=== PATIENT | female | born 1975 | race African-American/Black ===

== ENCOUNTER 2016-08-19 04:57 | Emergency (ER) | payer OTHER ==
--- NOTE | 2016-08-19 05:34 | ED NURSING NOTES ---
Clinical Report - Nurses [facility] [address] [place] [address] 08/19/2016 4:57 Patient: CHAUNCEY BATES TRIAGE Triage time 0504 AM. Chief Complaint: "FLU", FEVER, COUGH and BODY ACHES. Alert. No acute distress. --05:08 Amado Robles R.N. 05:04 08/19/16. BP: 156/111. HR: 81. RR: 18. O2 saturation: 97%. Temp: 98.5 F (oral). Pain level now: 03/14. --05:08 Amado Robles R.N. Weight: 113.3 kg stated. Height/Length: 66 inches Per Patient. BMI: 40.3. --05:06 Amado Robles R.N. Medications ALPRAZolam Oral. Evotas. Latuda Oral. Lisinopril Oral 10 mg, daily. Nightmare medication. OLANZapine Oral. --05:05 Amado Robles R.N. Truvada Oral. --05:06 Amado Robles R.N. Allergies Sulfa Antibiotics. --05:05 Amado Robles R.N. History Arrived by private vehicle. Historian: patient. Accompanied by family. Onset. (about 2 days). She has had contact with a sick individual. She has had chills, fatigue, sinus pain and a headache. PAST MEDICAL HX: Immunizations: up-to-date. Last normal menstrual period- August 18. Denies current . SOCIAL HX: Light tobacco smoker (cigarette)- less than 1/2 a pack per day. Alcohol use. (no). History of drug use. (no). FALL RISK ASSESSMENT: Fall risk assessment completed. No fall risk identified. NUTRITIONAL RISK ASSESSMENT: The nutritional risk assessment revealed no deficiencies. FUNCTIONAL ASSESSMENT: Functional assessment: no impairments noted. LEARNING NEEDS ASSESSMENT: The learning needs assessment revealed no barriers. SKIN INTEGRITY ASSESSMENT: Skin integrity risk assessment completed. No skin integrity risk identified. --05:08 Amado Robles R.N. Treatment TELEPHONE COIN BOX COLLECTOR: None. --05:08 Amado Robles R.N. PROBLEMS: UTI - Urinary Tract Infection. Dehydration. Costochondritis. Hypertension. Gastroenteritis. Diarrhea. Vomiting. Abdominal Pain. Mental health problem. HIV Illness. --05:06 Amado Robles R.N. ADDITIONAL SURGERIES: Cervical. . --05:06 Amado Robles R.N. PHYSICAL ASSESSMENT Ambulatory to room. GENERAL / NEURO / PSYCH: Alert. Oriented X 4. Appears in no acute distress. HEENT: Pupils equal, round and reactive to light. Mucous membranes are pink. RESPIRATORY: Cough productive of moderate amounts of green sputum. CVS: Normal sinus rhythm noted. Capillary refill less than 2 seconds. Pulses within normal limits. GI / : The patient has diarrhea. Abdomen soft. SKIN: Skin intact. Skin is warm and dry. Normal skin turgor. --05:08 Amado Robles R.N. NURSING PROGRESS NOTES Call light placed in reach. Side rails up x 2. Bed placed in lowest position. Brakes of bed on. --05:08 Amado Robles R.N. DISPOSITION / DISCHARGE Condition at departure: unchanged. The goals identified in the patient's plan of care were met. No learning barriers present. Reviewed medication(s) side effects, precautions, dosing and course information. Prescription(s) given to the patient. Patient verbalized understanding. Written instructions provided in Kiswahili. The patient was discharged home and unaccompanied at time of discharge. She left the Emergency Department ambulatory and via private vehicle. Occupational Therapist Rehab Manager driving. FALL RISK ASSESSMENT: Fall risk assessment completed. No fall risk identified. --05:43 Amado Robles R.N. Departure time: 0544 AM. ( Patient upset about discharge. States that she was not adequately evaluated in the ED. States that she is going to [facility].). --05:44 Amado Robles R.N. Locked/Released at 08/19/2016 5:44 by Amado Robles R.N.
--- NOTE | 2016-08-19 05:34 | ED CLINICAL REPORT ---
Clinical Report - Physicians/Mid Levels [facility] [address] [place] [address] 08/19/2016 4:57 Patient: CHAUNCEY BATES Time Seen: 05:03; initial patient contact. Arrived- By private vehicle. Historian- patient. HISTORY OF PRESENT ILLNESS Chief Complaint: COUGH. This started about 2 days ago and is still present. It was gradual in onset. The illness is described as mild. The patient has had a cough, a sore throat, nasal congestion, sinus pressure and sinus drainage. She has had a nasal discharge. No sputum production, difficulty breathing, chest discomfort or pain or fever. No muscle aches, chills or ear pain. Additional history - The patient has had contact with a sick individual. Similar symptoms previously: Several times. Recent medical care: Not recently seen/assessed. REVIEW OF SYSTEMS The patient has had a headache. No nausea, vomiting, diarrhea or enlarged lymph nodes. All systems otherwise negative, except as recorded above. PAST HISTORY UTI - Urinary Tract Infection. Dehydration. Costochondritis. Hypertension. Gastroenteritis. Diarrhea. Vomiting. Abdominal Pain. Mental health problem. HIV Illness. ADDITIONAL SURGERIES: Cervical. . SOCIAL HISTORY Current every day smoker. No alcohol use or drug use. ADDITIONAL NOTES The nursing notes have been reviewed with agreement regarding the chief complaint, PMH and patient medications and allergies. PHYSICAL EXAM Vital Signs: 08/19/2016 05:04 BP: 156/111. HR: 81. RR: 18. O2 saturation: 97%. Temp: 98.5 F. Pain level now: 910. Have been reviewed. Hypertensive. Heart rate normal. Respiratory rate normal. Temperature normal. Oxygen saturation normal. Appearance: Alert. No acute distress. Head: Tenderness present to percussion/palpation of the sinuses. Eyes: Eyes normal inspection. ENT: Mild pharyngeal erythema with right tonsillar swelling and left tonsillar swelling. Neck: No lymphadenopathy. CVS: Normal heart rate and rhythm. Heart sounds normal. Respiratory: No respiratory distress. Breath sounds normal. Skin: No rash. Neuro: Oriented X 3. PROGRESS AND PROCEDURES Disposition: Discharged home in good condition. Condition: good. CLINICAL IMPRESSION Acute viral rhinitis and sinusitis. INSTRUCTIONS Do not work today, tomorrow. Your Current Medications: CONTINUE TAKING THE FOLLOWING MEDICATIONS: ALPRAZolam Oral. Evotas*. Latuda Oral. Lisinopril Oral : 10 mg daily. Nightmare medication*. OLANZapine Oral. Truvada Oral. Prescription Medications: Flonase nasal spray: 2 sprays to each nostril daily. Dispense one (1) unit. No refills. Substitution is permissible Follow-up: Follow up with your doctor in about two days. Call for an appointment. Blood pressure screening was not performed during this visit because the patient has an active diagnosis of hypertension. The patient should follow up with a primary care provider for blood pressure management. (Electronically signed by Chon Barrientos Dr. 08/19/2016 5:36)
--- NOTE | 2016-08-19 05:34 | ED NURSING NOTES ---
Clinical Report - Nurses [facility] [address] [place] [address] 08/19/2016 4:57 Patient: CHAUNCEY BATES TRIAGE Triage time 0504 AM. Chief Complaint: "FLU", FEVER, COUGH and BODY ACHES. Alert. No acute distress. --05:08 Amado Robles R.N. 05:04 08/19/16. BP: 156/111. HR: 81. RR: 18. O2 saturation: 97%. Temp: 98.5 F (oral). Pain level now: 03/14. --05:08 Amado Robles R.N. Weight: 113.3 kg stated. Height/Length: 66 inches Per Patient. BMI: 40.3. --05:06 Amado Robles R.N. Medications ALPRAZolam Oral. Evotas. Latuda Oral. Lisinopril Oral 10 mg, daily. Nightmare medication. OLANZapine Oral. --05:05 Amado Robles R.N. Truvada Oral. --05:06 Amado Robles R.N. Allergies Sulfa Antibiotics. --05:05 Amado Robles R.N. History Arrived by private vehicle. Historian: patient. Accompanied by family. Onset. (about 2 days). She has had contact with a sick individual. She has had chills, fatigue, sinus pain and a headache. PAST MEDICAL HX: Immunizations: up-to-date. Last normal menstrual period- August 18. Denies current . SOCIAL HX: Light tobacco smoker (cigarette)- less than 1/2 a pack per day. Alcohol use. (no). History of drug use. (no). FALL RISK ASSESSMENT: Fall risk assessment completed. No fall risk identified. NUTRITIONAL RISK ASSESSMENT: The nutritional risk assessment revealed no deficiencies. FUNCTIONAL ASSESSMENT: Functional assessment: no impairments noted. LEARNING NEEDS ASSESSMENT: The learning needs assessment revealed no barriers. SKIN INTEGRITY ASSESSMENT: Skin integrity risk assessment completed. No skin integrity risk identified. --05:08 Amado Robles R.N. Treatment MECHANIC MARINE ENGINE: None. --05:08 Amado Robles R.N. PROBLEMS: UTI - Urinary Tract Infection. Dehydration. Costochondritis. Hypertension. Gastroenteritis. Diarrhea. Vomiting. Abdominal Pain. Mental health problem. HIV Illness. --05:06 Amado Robles R.N. ADDITIONAL SURGERIES: Cervical. . --05:06 Amado Robles R.N. PHYSICAL ASSESSMENT Ambulatory to room. GENERAL / NEURO / PSYCH: Alert. Oriented X 4. Appears in no acute distress. HEENT: Pupils equal, round and reactive to light. Mucous membranes are pink. RESPIRATORY: Cough productive of moderate amounts of green sputum. CVS: Normal sinus rhythm noted. Capillary refill less than 2 seconds. Pulses within normal limits. GI / : The patient has diarrhea. Abdomen soft. SKIN: Skin intact. Skin is warm and dry. Normal skin turgor. --05:08 Amado Robles R.N. NURSING PROGRESS NOTES Call light placed in reach. Side rails up x 2. Bed placed in lowest position. Brakes of bed on. --05:08 Amado Robles R.N. DISPOSITION / DISCHARGE Condition at departure: unchanged. The goals identified in the patient's plan of care were met. No learning barriers present. Reviewed medication(s) side effects, precautions, dosing and course information. Prescription(s) given to the patient. Patient verbalized understanding. Written instructions provided in Maori. The patient was discharged home and unaccompanied at time of discharge. She left the Emergency Department ambulatory and via private vehicle. Ink Jet Operator driving. FALL RISK ASSESSMENT: Fall risk assessment completed. No fall risk identified. --05:43 Amado Robles R.N. Departure time: 0544 AM. ( Patient upset about discharge. States that she was not adequately evaluated in the ED. States that she is going to [place] [facility].). --05:44 Amado Robles R.N. Locked/Released at 08/19/2016 5:44 by Amado Robles R.N.
--- NOTE | 2016-08-19 05:34 | ED CLINICAL REPORT ---
Clinical Report - Physicians/Mid Levels [facility] [address] [place] [address] 08/19/2016 4:57 Patient: CHAUNCEY BATES Time Seen: 05:03; initial patient contact. Arrived- By private vehicle. Historian- patient. HISTORY OF PRESENT ILLNESS Chief Complaint: COUGH. This started about 2 days ago and is still present. It was gradual in onset. The illness is described as mild. The patient has had a cough, a sore throat, nasal congestion, sinus pressure and sinus drainage. She has had a nasal discharge. No sputum production, difficulty breathing, chest discomfort or pain or fever. No muscle aches, chills or ear pain. Additional history - The patient has had contact with a sick individual. Similar symptoms previously: Several times. Recent medical care: Not recently seen/assessed. REVIEW OF SYSTEMS The patient has had a headache. No nausea, vomiting, diarrhea or enlarged lymph nodes. All systems otherwise negative, except as recorded above. PAST HISTORY UTI - Urinary Tract Infection. Dehydration. Costochondritis. Hypertension. Gastroenteritis. Diarrhea. Vomiting. Abdominal Pain. Mental health problem. HIV Illness. ADDITIONAL SURGERIES: Cervical. . SOCIAL HISTORY Current every day smoker. No alcohol use or drug use. ADDITIONAL NOTES The nursing notes have been reviewed with agreement regarding the chief complaint, PMH and patient medications and allergies. PHYSICAL EXAM Vital Signs: 08/19/2016 05:04 BP: 156/111. HR: 81. RR: 18. O2 saturation: 97%. Temp: 98.5 F. Pain level now: 910. Have been reviewed. Hypertensive. Heart rate normal. Respiratory rate normal. Temperature normal. Oxygen saturation normal. Appearance: Alert. No acute distress. Head: Tenderness present to percussion/palpation of the sinuses. Eyes: Eyes normal inspection. ENT: Mild pharyngeal erythema with right tonsillar swelling and left tonsillar swelling. Neck: No lymphadenopathy. CVS: Normal heart rate and rhythm. Heart sounds normal. Respiratory: No respiratory distress. Breath sounds normal. Skin: No rash. Neuro: Oriented X 3. PROGRESS AND PROCEDURES Disposition: Discharged home in good condition. Condition: good. CLINICAL IMPRESSION Acute viral rhinitis and sinusitis. INSTRUCTIONS Do not work today, tomorrow. Your Current Medications: CONTINUE TAKING THE FOLLOWING MEDICATIONS: ALPRAZolam Oral. Evotas*. Latuda Oral. Lisinopril Oral : 10 mg daily. Nightmare medication*. OLANZapine Oral. Truvada Oral. Prescription Medications: Flonase nasal spray: 2 sprays to each nostril daily. Dispense one (1) unit. No refills. Substitution is permissible Follow-up: Follow up with your doctor in about two days. Call for an appointment. Blood pressure screening was not performed during this visit because the patient has an active diagnosis of hypertension. The patient should follow up with a primary care provider for blood pressure management. (Electronically signed by Chon Barrientos Dr. 08/19/2016 5:36)
--- NOTE | 2016-08-19 05:45 | ED MAR SUMMARY ---
..... Medication Administration Record [facility] [address] [place], [place] [id number] Patient: CHAUNCEY BATES Visit ID: [id number] 41y, F Weight: 113.3 kg Height/Length: 66 in BMI: 40.3 ALLERGIES: Sulfa Antibiotics
--- NOTE | 2016-08-19 05:45 | ED MED RECONCILIATION SUMMARY ---
Patient: CHAUNCEY BATES Medication Reconciliation Report [facility] VisitID: [id number] [address] [place] [address] 41y, F Registration Date/Time: 08/19/2016 Weight: 113.3 kg Height/Length: 66 in. BMI: 40.3 ALLERGIES: Sulfa Antibiotics The patient's Home Medications are listed below: CONTINUE TAKING THE FOLLOWING MEDICATIONS: ALPRAZolam Oral Evotas Latuda Oral Lisinopril Oral 10 mg, daily Nightmare medication OLANZapine Oral Truvada Oral The source(s) of the original Home Medication information: Not obtained. The following Medications were given to the patient in the Emergency Department: None. The following Medications were prescribed to the patient: Flonase nasal spray: 2 sprays to each nostril daily. Dispense one (1) unit. No refills. Substitution is permissible -- Chon Barrientos Dr.
--- NOTE | 2016-08-19 05:45 | ED MAR SUMMARY ---
..... Medication Administration Record [facility] [address] [place], [place] [id number] Patient: CHAUNCEY BATES Visit ID: [id number] 41y, F Weight: 113.3 kg Height/Length: 66 in BMI: 40.3 ALLERGIES: Sulfa Antibiotics
--- NOTE | 2016-08-19 05:45 | ED DISCHARGE INSTRUCTIONS ---
Patient: CHAUNCEY BATES General Instructions [facility] VisitID: [id number] [address] [place] [address] 41y, F Registration Date/Time: 08/19/2016 Acute viral rhinitis and sinusitis. INSTRUCTIONS Do not work today, tomorrow. Your Current Medications: CONTINUE TAKING THE FOLLOWING MEDICATIONS: ALPRAZolam Oral. Evotas*. Latuda Oral. Lisinopril Oral : 10 mg daily. Nightmare medication*. OLANZapine Oral. Truvada Oral. Prescription Medications: Flonase nasal spray: 2 sprays to each nostril daily. Dispense one (1) unit. No refills. Substitution is permissible Follow-up: Follow up with your doctor in about two days. Call for an appointment. Blood pressure screening was not performed during this visit because the patient has an active diagnosis of hypertension. The patient should follow up with a primary care provider for blood pressure management. ADDITIONAL INFORMATION Viral Respiratory Illness [Adult] You have an Upper Respiratory Illness (URI) caused by a virus. This illness is contagious during the first few days. It is spread through the air by coughing and sneezing or by direct contact (touching the sick person and then touching your own eyes, nose or mouth). Most viral illnesses go away within 7-10 days with rest and simple home remedies. Sometimes, the illness may last for several weeks. Antibiotics will not kill a virus and are generally not prescribed for this condition. Home Care: 1) If symptoms are severe, rest at home for the first 2-3 days. When you resume activity, don't let yourself get too tired. 2) Avoid being exposed to cigarette smoke (yours or others). 3) Tylenol (acetaminophen) or ibuprofen (Advil, Motrin) will help fever, muscle aching and headache. (Persons under 18 with fever should not take aspirin since this may cause liver damage.) 4) Your appetite may be poor, so a light diet is fine. Avoid dehydration by drinking 6-8 glasses of fluids per day (water, soft drinks, juices, tea, soup). Extra fluids will help loosen secretions in the nose and lungs. 5) Dctg-kqo-jnelyhm cold medicines will not shorten the length of time youre sick, but they may be helpful for the following symptoms: cough (Robitussin DM); sore throat (Chloraseptic lozenges or spray); nasal and sinus congestion (Actifed, Sudafed, Chlortrimeton). Follow Up with your doctor or as advised if you dont improve over the next week. Get Prompt Medical Attention if any of the following occur: -- Cough with lots of colored sputum (mucus) or blood in your sputum -- Chest pain, shortness of breath, wheezing or have trouble breathing -- Severe headache; face, neck or ear pain -- Fever over 100.4 F (38.0 C) for more than three days -- You cant swallow due to throat pain Fluticasone Propionate Nasal spray, solution What is this medicine? FLUTICASONE (floo TIK a sone) is a corticosteroid. It helps decrease inflammation in your nose. This medicine is used to treat the symptoms of allergies like sneezing, itching, and runny or stuffy nose. How should I use this medicine? This medicine is for use in the nose. Follow the directions on your prescription label. This medicine works best if used regularly. Do not use more often than directed. Make sure that you are using your nasal spray correctly. Ask you doctor or health care provider if you have any questions. Talk to your passenger vessel chef regarding the use of this medicine in children. While this drug may be prescribed for children as young as 4 years old for selected conditions, precautions do apply. What side effects may I notice from receiving this medicine? Side effects that you should report to your doctor or health care specialist as soon as possible: allergic reactions like skin rash, itching or hives, swelling of the face, lips, or tongue changes in vision flu-like symptoms white patches or sores in the mouth or nose Side effects that usually do not require medical attention (report to your doctor or health care specialist if they continue or are bothersome): burning or irritation inside the nose or throat cough headache nosebleed unusual taste or smell What may interact with this medicine? ketoconazole metyrapone some medicines for HIV vaccines What if I miss a dose? If you miss a dose, use it as soon as you remember. If it is almost time for your next dose, use only that dose and continue with your regular schedule. Do not use double or extra doses. Where should I keep my medicine? Keep out of the reach of children. Store at room temperature between 15 and 30 degrees C (59 and 86 degrees F). Throw away any unused medicine after the expiration date. What should I tell my health care provider before I take this medicine? They need to know if you have any of these conditions: infection, like tuberculosis, herpes, or fungal infection recent surgery on nose or sinuses taking corticosteroid by mouth an unusual or allergic reaction to fluticasone, steroids, other medicines, foods, dyes, or preservatives or trying to get breast-feeding What should I watch for while using this medicine? Visit your doctor or health care specialist for regular checks on your progress. Some symptoms may improve within 12 hours after starting use. Check with your doctor or health care specialist if there is no improvement in your condition after 3 weeks of use. Do not come in contact with people who have chickenpox or the measles while you are taking this medicine. If you do, call your doctor right away. You have been given the following additional information: Uri, Viral, No Abx (Adult) Fluticasone Propionate Nasal spray, solution Do not work today, tomorrow. (Electronically signed by Chon Barrientos Dr. 08/19/2016 5:36)
--- NOTE | 2016-08-19 05:45 | ED DISCHARGE INSTRUCTIONS ---
Patient: CHAUNCEY BATES General Instructions [facility] VisitID: [id number] [address] [place] [address] 41y, F Registration Date/Time: 08/19/2016 Acute viral rhinitis and sinusitis. INSTRUCTIONS Do not work today, tomorrow. Your Current Medications: CONTINUE TAKING THE FOLLOWING MEDICATIONS: ALPRAZolam Oral. Evotas*. Latuda Oral. Lisinopril Oral : 10 mg daily. Nightmare medication*. OLANZapine Oral. Truvada Oral. Prescription Medications: Flonase nasal spray: 2 sprays to each nostril daily. Dispense one (1) unit. No refills. Substitution is permissible Follow-up: Follow up with your doctor in about two days. Call for an appointment. Blood pressure screening was not performed during this visit because the patient has an active diagnosis of hypertension. The patient should follow up with a primary care provider for blood pressure management. ADDITIONAL INFORMATION Viral Respiratory Illness [Adult] You have an Upper Respiratory Illness (URI) caused by a virus. This illness is contagious during the first few days. It is spread through the air by coughing and sneezing or by direct contact (touching the sick person and then touching your own eyes, nose or mouth). Most viral illnesses go away within 7-10 days with rest and simple home remedies. Sometimes, the illness may last for several weeks. Antibiotics will not kill a virus and are generally not prescribed for this condition. Home Care: 1) If symptoms are severe, rest at home for the first 2-3 days. When you resume activity, don't let yourself get too tired. 2) Avoid being exposed to cigarette smoke (yours or others). 3) Tylenol (acetaminophen) or ibuprofen (Advil, Motrin) will help fever, muscle aching and headache. (Persons under 18 with fever should not take aspirin since this may cause liver damage.) 4) Your appetite may be poor, so a light diet is fine. Avoid dehydration by drinking 6-8 glasses of fluids per day (water, soft drinks, juices, tea, soup). Extra fluids will help loosen secretions in the nose and lungs. 5) Boab-xkn-urstybh cold medicines will not shorten the length of time youre sick, but they may be helpful for the following symptoms: cough (Robitussin DM); sore throat (Chloraseptic lozenges or spray); nasal and sinus congestion (Actifed, Sudafed, Chlortrimeton). Follow Up with your doctor or as advised if you dont improve over the next week. Get Prompt Medical Attention if any of the following occur: -- Cough with lots of colored sputum (mucus) or blood in your sputum -- Chest pain, shortness of breath, wheezing or have trouble breathing -- Severe headache; face, neck or ear pain -- Fever over 100.4 F (38.0 C) for more than three days -- You cant swallow due to throat pain Fluticasone Propionate Nasal spray, solution What is this medicine? FLUTICASONE (floo TIK a sone) is a corticosteroid. It helps decrease inflammation in your nose. This medicine is used to treat the symptoms of allergies like sneezing, itching, and runny or stuffy nose. How should I use this medicine? This medicine is for use in the nose. Follow the directions on your prescription label. This medicine works best if used regularly. Do not use more often than directed. Make sure that you are using your nasal spray correctly. Ask you doctor or health care provider if you have any questions. Talk to your transit mix operator regarding the use of this medicine in children. While this drug may be prescribed for children as young as 4 years old for selected conditions, precautions do apply. What side effects may I notice from receiving this medicine? Side effects that you should report to your doctor or health family day care worker as soon as possible: allergic reactions like skin rash, itching or hives, swelling of the face, lips, or tongue changes in vision flu-like symptoms white patches or sores in the mouth or nose Side effects that usually do not require medical attention (report to your doctor or health family day care worker if they continue or are bothersome): burning or irritation inside the nose or throat cough headache nosebleed unusual taste or smell What may interact with this medicine? ketoconazole metyrapone some medicines for HIV vaccines What if I miss a dose? If you miss a dose, use it as soon as you remember. If it is almost time for your next dose, use only that dose and continue with your regular schedule. Do not use double or extra doses. Where should I keep my medicine? Keep out of the reach of children. Store at room temperature between 15 and 30 degrees C (59 and 86 degrees F). Throw away any unused medicine after the expiration date. What should I tell my health care provider before I take this medicine? They need to know if you have any of these conditions: infection, like tuberculosis, herpes, or fungal infection recent surgery on nose or sinuses taking corticosteroid by mouth an unusual or allergic reaction to fluticasone, steroids, other medicines, foods, dyes, or preservatives or trying to get breast-feeding What should I watch for while using this medicine? Visit your doctor or health family day care worker for regular checks on your progress. Some symptoms may improve within 12 hours after starting use. Check with your doctor or health family day care worker if there is no improvement in your condition after 3 weeks of use. Do not come in contact with people who have chickenpox or the measles while you are taking this medicine. If you do, call your doctor right away. You have been given the following additional information: Uri, Viral, No Abx (Adult) Fluticasone Propionate Nasal spray, solution Do not work today, tomorrow. (Electronically signed by Chon Barrientos Dr. 08/19/2016 5:36)
--- NOTE | 2016-08-19 05:45 | ED MED RECONCILIATION SUMMARY ---
Patient: CHAUNCEY BATES Medication Reconciliation Report VisitID: [id number] [address] [place] [address] 41y, F Registration Date/Time: 08/19/2016 Weight: 113.3 kg Height/Length: 66 in. BMI: 40.3 ALLERGIES: Sulfa Antibiotics The patient's Home Medications are listed below: CONTINUE TAKING THE FOLLOWING MEDICATIONS: ALPRAZolam Oral Evotas Latuda Oral Lisinopril Oral 10 mg, daily Nightmare medication OLANZapine Oral Truvada Oral The source(s) of the original Home Medication information: Not obtained. The following Medications were given to the patient in the Emergency Department: None. The following Medications were prescribed to the patient: Flonase nasal spray: 2 sprays to each nostril daily. Dispense one (1) unit. No refills. Substitution is permissible -- Chon Barrientos Dr.
== END 2016-08-19 05:45 | disposition home or self-care (01) ==
LOC: ED SRH 04:57
DX: J01.90 Acute sinusitis, unspecified (principal); J00 Acute nasopharyngitis [common cold]; Z72.0 Tobacco use; Z79.899 Other long term (current) drug therapy; Z88.2 Allergy status to sulfonamides

== ENCOUNTER 2016-09-18 14:46 | Emergency (ER) | payer OTHER ==
--- NOTE | 2016-09-18 15:31 | DIAGNOSTIC IMAGING REPORT ---
PROCEDURE: XR CHEST 2 VIEW INDICATION: COUGH TECHNIQUE: PA and lateral views. COMPARISON: None. FINDINGS: Lungs are clear. Heart and mediastinum are normal. Thorax is normal. IMPRESSION: 1. Negative chest.
--- NOTE | 2016-09-18 17:07 | ED NURSING NOTES ---
Clinical Report - Nurses [facility] [address] [place] [address] 09/18/2016 14:48 Patient: CHAUNCEY BATES TRIAGE Triage time 1455. Acuity: LEVEL 3. Chief Complaint: SHORTNESS OF BREATH and WHEEZING. 14:55. --15:04 Dipika Ferrer R.N. 14:55 09/18/16. BP: 138/93. HR: 80. RR: 22. O2 saturation: 99%. Temp: 98.3 F. Pain level now: 01/11. --15:04 Dipika Ferrer R.N. Weight: 113 kg stated. Height/Length: 66 inches Per Patient. BMI: 40.2. --15:02 Dipika Ferrer R.N. Medications ALPRAZolam Oral. Evotas. Lisinopril Oral 10 mg, daily. OLANZapine Oral. Truvada Oral. --14:58 Dipika Ferrer R.N. Prazin 20mg for nightmares . --14:59 Dipika Ferrer R.N. Allergies Sulfa Antibiotics. --14:58 Dipika Ferrer R.N. History Arrived by private vehicle. Historian: patient. Accompanied by friend. Primary physician ([facility]). The patient has had fever and chills. She has had a cough (yellow sputum). ( pt also had diarrhea a few days ago, had a co-worker who had noro virus). PAST MEDICAL HX: Last normal menstrual period- ended yesterday. SOCIAL HX: Light tobacco smoker (cigarette)- less than 1/2 a pack per day. --15:04 Dipika Ferrer R.N. PROBLEMS: URI. UTI - Urinary Tract Infection. Dehydration. Costochondritis. Hypertension. Gastroenteritis. Mental health problem. HIV Illness. --15:04 Dipika Ferrer R.N. ADDITIONAL SURGERIES: Cervical. . --15:04 Dipika Ferrer R.N. Interventions ID band on patient. To treatment room. --15:04 Dipika Ferrer R.N. PHYSICAL ASSESSMENT 14:55. Ambulatory to room. Patient gowned. GENERAL / NEURO / PSYCH: Alert. Oriented X 4. RESPIRATORY: Mild respiratory distress. Cough. Chest wall tenderness. CVS: Capillary refill less than 2 seconds. SKIN: Skin is warm and dry. --15:05 Dipika Ferrer R.N. NURSING PROGRESS NOTES 14:55. Patient gowned. Head of bed elevated. Reassurance given. Patient identifiers checked. Call light placed in reach. Side rails up. Bed placed in lowest position. Patient ready for evaluation- chart flagged. --15:04 Dipika Ferrer R.N. 15:05. Patient transported to radiology by stretcher with tech. --15:11 Dipika Ferrer R.N. 15:18 09/18/2016 Albuterol Neb TX Nebulizer 2 unit dose given. Given by the respiratory therapist. Allergies verified and confirmed 5 rights. --15:18 Joyce Em 15:19 09/18/2016 ALBUTEROL NEB W ATROVENT Neb TX Nebulizer 1 unit dose given. Given by the respiratory therapist. Allergies verified and confirmed 5 rights. --15:19 Joyce Em 15:17. Patient returned from radiology by stretcher with tech. --15:27 Dipika Ferrer R.N. 15:22. ( RT here to do breathing tx). --15:27 Dipika Ferrer R.N. 15:30. ( hot packed prior to IV attempts). --15:45 Dipika Ferrer R.N. 15:15 09/18/2016 SOLU-MEDROL (MethylPREDNISolone Sodium Succ) IVP 125 mg given over 1 minute(s) via site #1. IV patency established. IV site checked: no pain, redness, or swelling. IV flushed thoroughly pre- and post-medication administration. IVP given by RN. --16:35 Dipika Ferrer R.N. 15:40 09/18/2016 One (1) unsuccessful IV access attempt including the left hand. Applied bandaid. --15:45 Dipika Ferrer R.N. 16:00 09/18/2016 Site #1 started via IV in the right hand with an 24g angiocath, with aseptic technique and good blood return; one attempt. Saline lock flushed with 10 mL saline (unable to draw blood with start, lab called). --16:00 Fabi Woods R.N. 16:00 09/18/16. BP: 128/86. HR: 88. RR: 18. O2 saturation: 100%. Temp: deferred. Pain level now: 01/11. Additional comments: Beena Paws warming unit placed on p t . --17:05 Dipika Ferrer R.N. 16:10. Patient ID band checked for patient name and birthdate. Clean catch urine collected with return of yellow-colored clear urine; sample sent to lab. Specimen labeled in the presence of the patient. ( Pt ambulated to bathroom, UA obtained). --17:06 Dipika Ferrer R.N. 16:48 09/18/2016 Toradol IVP 30 mg given over 1 minute(s) via site #1. IV patency established. IV site checked: no pain, redness, or swelling. IV flushed thoroughly pre- and post-medication administration. IVP given by RN. --18:11 Dipika Ferrer R.N. 16:51 09/18/2016 Site #1 removed upon discharge. Bandaid applied. --18:12 Dipika Ferrer R.N. 16:51 09/18/2016 IV Saline Lock Drip IV Discontinued: bag #1 STOPPED upon discharge. Total amount infused: 0 mL. --18:11 Dipika Ferrer R.N. 16:50. ( pt c/o general body aches, talking with EDNP about this, and findings and follow up. Pt given IVP meds prior to IV DC). --18:13 Dipika Ferrer R.N. DISPOSITION / DISCHARGE 16:55. Condition at departure: improved and stable. No learning barriers present. Discharge instructions provided and reviewed with the patient and spouse. Reviewed medication(s) (prednisone, tessalon perles, zithromax, ultram). Treatments reviewed (dont work for 2 days, take meds as directed). Patient and spouse verbalized understanding. Written instructions provided in Pashto. The patient was discharged home and accompanied by spouse. She left the Emergency Department ambulatory and via private vehicle. Spouse driving. LICO COMA SCORE: Lico Coma Scale: 15- eyes open spontaneously (4); best verbal response- oriented x 4 (5); best motor response- obeys commands (6). --18:10 Dipika Ferrer R.N. 16:55 09/18/16. BP: 128/86. HR: 76. RR: 18. O2 saturation: 100%. Temp: deferred. Pain level now: 0/10. --18:10 Dipika Ferrer R.N. Locked/Released at 09/18/2016 18:14 by Dipika Ferrer R.N.
--- NOTE | 2016-09-18 17:07 | ED ORDER SUMMARY ---
..... Patient: CHAUNCEY BATES OrderSheet [facility] VisitID: [id number] [place] [address] 41y, F Registration Date/Time: 09/18/2016 ORDER SHEET Weight: 113 kg (stated) Allergies: Sulfa Antibiotics GENERAL ORDERS: Chest 2V Urgent (15:04 09/18/2016 HBivens A.R.N.P.) (15:13 DDean R.N.) CBC w Diff Urgent (15:05 09/18/2016 HBivens A.R.N.P.) (Ack 15:14 RKaruga) (16:56 RKaruga) BMP Urgent (15:05 09/18/2016 HBivens A.R.N.P.) (Ack 15:14 RKaruga) (16:56 RKaruga) Vitals (16:48 09/18/2016 HBivens A.R.N.P.) (17:06 DDean R.N.) MEDICATION ORDERS: Albuterol Neb w Atrovent 1 unit dose (NOW) (15:04 09/18/2016 HBivens A.R.N.P.) (Ack 15:13 DDean R.N.) (15:19 Jozef) Albuterol Neb Tx 2 unit doses (NOW) (15:04 09/18/2016 HBivens A.R.N.P.) (Ack 15:13 DDean R.N.) (15:18 Jozef) IV FLUIDS: Solu-MEDROL IV 125 mg (NOW) (15:05 09/18/2016 HBivens A.R.N.P.) (Ack 15:14 DDean R.N.) (16:35 DDean R.N.) IV Saline Lock (15:05 09/18/2016 HBivens A.R.N.P.) (Ack 15:13 DDean R.N.) (16:00 Ingrid R.N.) Toradol IV 30 mg (NOW) (16:47 09/18/2016 HBivens A.R.N.P.) (Ack 17:03 DDean R.N.) (18:11 DDean R.N.) ORDER SHEET NOTES: [Electronically signed by Dipika Ferrer R.N. (18:14 09/18/2016)] [Electronically signed by Madhuri Mcconnell (18:48 09/18/2016)] [Electronically locked/signed by Dipika Ferrer R.N. (18:14 09/18/2016)]
--- NOTE | 2016-09-18 17:07 | ED ORDER SUMMARY ---
..... Patient: CHAUNCEY BATES OrderSheet [facility] VisitID: [id number] [place] [address] 41y, F Registration Date/Time: 09/18/2016 ORDER SHEET Weight: 113 kg (stated) Allergies: Sulfa Antibiotics GENERAL ORDERS: Chest 2V Urgent (15:04 09/18/2016 HBivens A.R.N.P.) (15:13 DDean R.N.) CBC w Diff Urgent (15:05 09/18/2016 HBivens A.R.N.P.) (Ack 15:14 RKaruga) (16:56 RKaruga) BMP Urgent (15:05 09/18/2016 HBivens A.R.N.P.) (Ack 15:14 RKaruga) (16:56 RKaruga) Vitals (16:48 09/18/2016 HBivens A.R.N.P.) (17:06 DDean R.N.) MEDICATION ORDERS: Albuterol Neb w Atrovent 1 unit dose (NOW) (15:04 09/18/2016 HBivens A.R.N.P.) (Ack 15:13 DDean R.N.) (15:19 Jozef) Albuterol Neb Tx 2 unit doses (NOW) (15:04 09/18/2016 HBivens A.R.N.P.) (Ack 15:13 DDean R.N.) (15:18 Jozef) IV FLUIDS: Solu-MEDROL IV 125 mg (NOW) (15:05 09/18/2016 HBivens A.R.N.P.) (Ack 15:14 DDean R.N.) (16:35 DDean R.N.) IV Saline Lock (15:05 09/18/2016 HBivens A.R.N.P.) (Ack 15:13 DDean R.N.) (16:00 Ingrid R.N.) Toradol IV 30 mg (NOW) (16:47 09/18/2016 HBivens A.R.N.P.) (Ack 17:03 DDean R.N.) (18:11 DDean R.N.) ORDER SHEET NOTES: [Electronically signed by Dipika Ferrer R.N. (18:14 09/18/2016)] [Electronically signed by Madhuri Mcconnell (18:48 09/18/2016)] [Electronically locked/signed by Dipika Ferrer R.N. (18:14 09/18/2016)]
--- NOTE | 2016-09-18 17:07 | ED CLINICAL REPORT ---
Clinical Report - Physicians/Mid Levels [facility] [address] [place] [address] 09/18/2016 14:48 Patient: CHAUNCEY BATES Time Seen: 15:00; upon arrival, initial patient contact, initial documentation, patient care assumed. Arrived- By private vehicle. Historian- patient. HISTORY OF PRESENT ILLNESS Chief Complaint: WHEEZING and HISTORY OF ASTHMA. This started yesterday and is still present. The patient has had a cough. She has had moderate amounts of thick, yellow sputum. No orthopnea or chest pain or discomfort. See nurses notes for current asthma threapy. Asthma triggers: unknown. Takes asthma medications. (says she is using more of her asthma med, and it is not helping). Similar symptoms previously: As bad. Recent medical care: Not recently seen/assessed. REVIEW OF SYSTEMS No sore throat, nasal discharge, sinus drainage, abdominal pain or diarrhea. No vomiting. She has had a subjective fever with chills. She has had muscle aches and chills. exposed to coworker who had stomach/gi flu. All systems otherwise negative, except as recorded above. PAST HISTORY See nurses notes. PROBLEMS: URI. UTI - Urinary Tract Infection. Dehydration. Costochondritis. Hypertension. Gastroenteritis. Mental health problem. HIV Illness. --15:04 Dipika Ferrer R.N. ADDITIONAL SURGERIES: Cervical. . --15:04 Dipika Ferrer R.N. SOCIAL HISTORY Light tobacco smoker. No alcohol use or drug use. No recent travel. Is a local resident. FAMILY HISTORY Negative. ADDITIONAL NOTES The nursing notes have been reviewed with agreement regarding the chief complaint, HPI, ROS, PMH and patient medications and allergies. PHYSICAL EXAM Vital Signs: 09/18/2016 14:55 BP: 138/93. HR: 80. RR: 22. O2 saturation: 99%. Temp: 98.3 F. Pain level now: 7/10. Have been reviewed as normal and appear to be correct. Appearance: Alert. No acute distress. Anxious. Eyes: Pupils equal, round and reactive to light. Eyes normal inspection. ENT: Ears normal. Nose normal. Pharynx normal. Uvula midline. Neck: Normal inspection. Neck supple. CVS: Normal heart rate and rhythm. Heart sounds normal. Pulses normal. Respiratory: No respiratory distress. Breath sounds normal. Back: Normal inspection. Skin: Skin warm and dry. Normal skin color. No rash. Normal skin turgor. Extremities: Extremities exhibit normal ROM. No lower extremity edema. Neuro: Oriented X 3. No motor deficit. No sensory deficit. LABS, X-RAYS, AND EKG Chest X-ray: Normal Chest X-Ray. (IMPRESSION: 1. Negative chest. Electronically Final signed by:Mauro Larson MD 09/18/2016 3:31:18 PM). The X-rays were interpreted by the radiologist and contemporaneously by me. Laboratory Tests: CBC w Diff: (JOCELYNE: 09/18/2016 16:12) ( MsgRcvd 09/18/2016 16:29) Final results Test Result Flag Units (Reference) WHITE BLOOD COUNT 7.8 K/uL (4.5-11.5) RED BLOOD COUNT 4.30 M/uL (4.00-5.20) HEMOGLOBIN 13.1 gm/dL (12.0-16.0) HEMATOCRIT 40.0 % (36.0-46.0) MEAN CELL VOLUME 93 fL (80-100) MEAN CORPUSCULAR HGB 31 pg (26-34) MEAN CORPUSCULAR HGB CONC 33 g/dL (31-37) RED CELL DISTRIBUTION WIDTH 12.8 % (11.6-14.8) PLATELET COUNT 295 K/uL (150-400) NEUTROPHIL % 60.8 % (50-75) LYMPH % 31.5 % (25-40) MONO % 6.6 % (3-14) EOSINOPHIL % 0.8 % (0-4) BASOPHIL % 0.3 % (0-2) BMP: (JOCELYNE: 09/18/2016 16:12) ( MsgRcvd 09/18/2016 16:30) Final results Test Result Flag Units (Reference) GLUCOSE 121 H mg/dL (70-110) BUN 13 mg/dL (7-18) CREATININE 0.8 mg/dL (0.6-1.3) Estimated GFR >60 mL/min Estimated GFR- >60 mL/min Note: Persistent reduction over 3 months in eGFR<60 mL/min/1.73 m2 defines CKD. Patients with eGFR values>=60 mL/min/1.73 m2 may also have CKD if evidence ofpersistent proteinuria. Additional information may be foundat www.kidney.org. SODIUM 138 mmol/L (136-145) POTASSIUM 3.5 mmol/L (3.5-5.1) CHLORIDE 100 mmol/L (98-107) CARBON DIOXIDE 27 mmol/L (21-32) CALCIUM 9.0 mg/dL (8.5-10.1) . PROGRESS AND PROCEDURES Course of Care: 15:08 09/18/16. pt has song, no controlled substances be given and to notify pcp if prescribing any, encourage smoking cessation, some narcs including xanax and last rx was 08/27, #9 er visits, see report for full details 1647. resp even and unlabored, B breath sounds cta, nad. Patient and family counseled in person regarding the patient's stable condition, test results and diagnosis. 16:47. Differential Diagnosis: Other possible considerations: anxiety, asthma, bronchospasm, flu, viral illness, uri, pneumonia. Above considerations are based on history, physical exam, laboratory data and X-Ray data. Differential diagnosis was discussed with patient. Disposition: Discharged home in good and improved condition (16:47). Condition: good and stable. CLINICAL IMPRESSION Acute rhinitis. INSTRUCTIONS Alternate Tylenol (Acetaminophen) and Motrin (Ibuprofen) for fever, temperature greater than 101 degrees orally. Take according to label instructions. Do not work today, for two days. Drink plenty of fluids. Avoid tobacco smoke. Warnings: GENERAL WARNINGS: Return or contact your physician immediately if your condition worsens or changes unexpectedly, if not improving as expected, or if other problems arise. Specifically return if problem worsens. Prescription Medications: Prednisone 20 mg: take 3 orally every day for 5 days. Dispense fifteen (15). No refills. Tessalon Perles 100 mg: Take 1 orally every 8 hours as needed for cough. Dispense twenty (20). No refills. Substitution is permissible. Zithromax 250 mg tablets: take 2 orally today, followed by 1 daily for the next 4 days. No refills. Substitution is permissible. Ultram 50 mg tablets: take 1-2 orally every 6 hours as needed for pain. Dispense twenty (20). No refills. Substitution is permissible. Follow-up: Follow up with your doctor in about three days even if well. Call for an appointment. Summary of care provided to patient. Understanding of the discharge instructions verbalized by patient. (Electronically signed by Madhuri Mcconnell A.R.N.P. 09/18/2016 18:48)
--- NOTE | 2016-09-18 18:49 | ED DISCHARGE INSTRUCTIONS ---
Patient: CHAUNCEY BATES General Instructions [facility] VisitID: [id number] [place] [address] 41y, F Registration Date/Time: 09/18/2016 Acute rhinitis. INSTRUCTIONS Alternate Tylenol (Acetaminophen) and Motrin (Ibuprofen) for fever, temperature greater than 101 degrees orally. Take according to label instructions. Do not work today, for two days. Drink plenty of fluids. Avoid tobacco smoke. Warnings: GENERAL WARNINGS: Return or contact your physician immediately if your condition worsens or changes unexpectedly, if not improving as expected, or if other problems arise. Specifically return if problem worsens. Prescription Medications: Prednisone 20 mg: take 3 orally every day for 5 days. Dispense fifteen (15). No refills. Tessalon Perles 100 mg: Take 1 orally every 8 hours as needed for cough. Dispense twenty (20). No refills. Substitution is permissible. Zithromax 250 mg tablets: take 2 orally today, followed by 1 daily for the next 4 days. No refills. Substitution is permissible. Ultram 50 mg tablets: take 1-2 orally every 6 hours as needed for pain. Dispense twenty (20). No refills. Substitution is permissible. Follow-up: Follow up with your doctor in about three days even if well. Call for an appointment. Summary of care provided to patient. Understanding of the discharge instructions verbalized by patient. ADDITIONAL INFORMATION Viral Respiratory Illness [Adult] You have an Upper Respiratory Illness (URI) caused by a virus. This illness is contagious during the first few days. It is spread through the air by coughing and sneezing or by direct contact (touching the sick person and then touching your own eyes, nose or mouth). Most viral illnesses go away within 7-10 days with rest and simple home remedies. Sometimes, the illness may last for several weeks. Antibiotics will not kill a virus and are generally not prescribed for this condition. Home Care: 1) If symptoms are severe, rest at home for the first 2-3 days. When you resume activity, don't let yourself get too tired. 2) Avoid being exposed to cigarette smoke (yours or others). 3) Tylenol (acetaminophen) or ibuprofen (Advil, Motrin) will help fever, muscle aching and headache. (Persons under 18 with fever should not take aspirin since this may cause liver damage.) 4) Your appetite may be poor, so a light diet is fine. Avoid dehydration by drinking 6-8 glasses of fluids per day (water, soft drinks, juices, tea, soup). Extra fluids will help loosen secretions in the nose and lungs. 5) [id number]-[id number] cold medicines will not shorten the length of time youre sick, but they may be helpful for the following symptoms: cough (Robitussin DM); sore throat (Chloraseptic lozenges or spray); nasal and sinus congestion (Actifed, Sudafed, Chlortrimeton). Follow Up with your doctor or as advised if you dont improve over the next week. Get Prompt Medical Attention if any of the following occur: -- Cough with lots of colored sputum (mucus) or blood in your sputum -- Chest pain, shortness of breath, wheezing or have trouble breathing -- Severe headache; face, neck or ear pain -- Fever over 100.4 F (38.0 C) for more than three days -- You cant swallow due to throat pain Fever Control (Adult) A fever is a natural reaction of the body to an illness. In most cases, the temperature itself is not harmful. It actually helps the body fight infections. A fever does not need to be treated unless you feel very uncomfortable. Home Care If you feel warm, check your temperature. If you feel very uncomfortable and your temperature is at or higher than 100.4F (38C) oral, you may take acetaminophen (Tylenol) every 4 to 6 hours. If you cant take or keep down oral medicine, ask your pharmacist for Tylenol suppositories, which you can get without a prescription. If the fever does not respond to acetaminophen within 1 hour, take ibuprofen (Advil or Motrin). If this works, keep taking the ibuprofen every 6 to 8 hours. Note: If you have chronic liver or kidney disease or ever had a stomach ulcer or GI bleeding, talk with your doctor before using these medications. If either medication alone does not keep the fever down, you may alternate the two medicines every 3 to 4 hours, only if your healthcare provider has instructed you to do so. For example, take Motrin then wait 3 hours, take Tylenol then wait 3 hours, take Motrin, and so on. Follow your healthcare providers instructions exactly. Clothing: Keep clothing light because excess body heat is lost through the skin. The fever will go up if you wear extra layers or wrap in blankets. Fluids: Fever causes the body to lose water through evaporation. Drink plenty of fluids such as water, juice, clear sodas, luke anita, or lemonade. Do not use aspirin in anyone under 18 years of age who is ill with a fever. It can cause severe liver damage. Follow Up with your doctor or as advised by our staff if you do not get better after 48 hours. Get Prompt Medical Attention if any of the following occur: Fever does not get better after taking fever medication Fast or difficult breathing Earache, sinus pain, stiff or painful neck, headache, repeated diarrhea or vomiting You feel unusually irritable, drowsy, or confused A rash appears You feel weak or dizzy, or that you might faint Prednisone Oral tablet What is this medicine? PREDNISONE (PRED ni sone) is a corticosteroid. It is commonly used to treat inflammation of the skin, joints, lungs, and other organs. Common conditions treated include asthma, allergies, and arthritis. It is also used for other conditions, such as blood disorders and diseases of the adrenal glands. How should I use this medicine? Take this medicine by mouth with a glass of water. Follow the directions on the prescription label. Take this medicine with food. If you are taking this medicine once a day, take it in the morning. Do not take more medicine than you are told to take. Do not suddenly stop taking your medicine because you may develop a severe reaction. Your doctor will tell you how much medicine to take. If your doctor wants you to stop the medicine, the dose may be slowly lowered over time to avoid any side effects. Talk to your resource development director regarding the use of this medicine in children. Special care may be needed. What side effects may I notice from receiving this medicine? Side effects that you should report to your doctor or health adult live in caregiver as soon as possible: allergic reactions like skin rash, itching or hives, swelling of the face, lips, or tongue changes in emotions or moods changes in vision depressed mood eye pain fever or chills, cough, sore throat, pain or difficulty passing urine increased thirst swelling of ankles, feet Side effects that usually do not require medical attention (report to your doctor or health adult live in caregiver if they continue or are bothersome): confusion, excitement, restlessness headache nausea, vomiting skin problems, acne, thin and shiny skin trouble sleeping weight gain What may interact with this medicine? Do not take this medicine with any of the following medications: metyrapone mifepristone This medicine may also interact with the following medications: aminoglutethimide amphotericin B aspirin and aspirin-like medicines barbiturates certain medicines for diabetes, like glipizide or glyburide cholestyramine cholinesterase inhibitors cyclosporine digoxin diuretics ephedrine female hormones, like estrogens and control pills isoniazid ketoconazole NSAIDS, medicines for pain and inflammation, like ibuprofen or naproxen phenytoin rifampin toxoids vaccines warfarin What if I miss a dose? If you miss a dose, take it as soon as you can. If it is almost time for your next dose, talk to your doctor or health adult live in caregiver. You may need to miss a dose or take an extra dose. Do not take double or extra doses without advice. Where should I keep my medicine? Keep out of the reach of children. Store at room temperature between 15 and 30 degrees C (59 and 86 degrees F). Protect from light. Keep container tightly closed. Throw away any unused medicine after the expiration date. What should I tell my health care provider before I take this medicine? They need to know if you have any of these conditions: Lisa's syndrome diabetes glaucoma heart disease high blood pressure infection (especially a virus infection such as chickenpox, cold sores, or herpes) kidney disease liver disease mental illness myasthenia gravis osteoporosis seizures stomach or intestine problems thyroid disease an unusual or allergic reaction to lactose, prednisone, other medicines, foods, dyes, or preservatives or trying to get breast-feeding What should I watch for while using this medicine? Visit your doctor or health adult live in caregiver for regular checks on your progress. If you are taking this medicine over a prolonged period, carry an identification card with your name and address, the type and dose of your medicine, and your doctor's name and address. This medicine may increase your risk of getting an infection. Tell your doctor or health adult live in caregiver if you are around anyone with measles or chickenpox, or if you develop sores or blisters that do not heal properly. If you are going to have surgery, tell your doctor or health adult live in caregiver that you have taken this medicine within the last twelve months. Ask your doctor or health adult live in caregiver about your diet. You may need to lower the amount of salt you eat. This medicine may affect blood sugar levels. If you have diabetes, check with your doctor or health adult live in caregiver before you change your diet or the dose of your diabetic medicine. Benzonatate Oral capsule, liquid filled What is this medicine? BENZONATATE (ashlee SARA na guzman) is used to treat cough. How should I use this medicine? Take this medicine by mouth with a glass of water. Follow the directions on the prescription label. Avoid breaking, chewing, or sucking the capsule, as this can cause serious side effects. Take your medicine at regular intervals. Do not take your medicine more often than directed. Talk to your resource development director regarding the use of this medicine in children. While this drug may be prescribed for children as young as 10 years old for selected conditions, precautions do apply. What side effects may I notice from receiving this medicine? Side effects that you should report to your doctor or health adult live in caregiver as soon as possible: allergic reactions like skin rash, itching or hives, swelling of the face, lips, or tongue breathing problems chest pain confusion or hallucinations irregular heartbeat numbness of mouth or throat seizures Side effects that usually do not require medical attention (report to your doctor or health adult live in caregiver if they continue or are bothersome): burning feeling in the eyes constipation headache nasal congestion stomach upset What may interact with this medicine? Do not take this medicine with any of the following medications: MAOIs like Carbex, Eldepryl, Marplan, Nardil, and Parnate What if I miss a dose? If you miss a dose, take it as soon as you can. If it is almost time for your next dose, take only that dose. Do not take double or extra doses. Where should I keep my medicine? Keep out of the reach of children. Store at room temperature between 15 and 30 degrees C (59 and 86 degrees F). Keep tightly closed. Protect from light and moisture. Throw away any unused medicine after the expiration date. What should I tell my health care provider before I take this medicine? They need to know if you have any of these conditions: kidney or liver disease an unusual or allergic reaction to benzonatate, anesthetics, other medicines, foods, dyes, or preservatives or trying to get breast-feeding What should I watch for while using this medicine? Tell your doctor if your symptoms do not improve or if they get worse. If you have a high fever, skin rash, or headache, see your health adult live in caregiver. You may get drowsy or dizzy. Do not drive, use machinery, or do anything that needs mental alertness until you know how this medicine affects you. Do not sit or stand up quickly, especially if you are an older patient. This reduces the risk of dizzy or fainting spells. Azithromycin Oral tablet What is this medicine? AZITHROMYCIN (az ith isaac LIVINGSTON sin) is a macrolide antibiotic. It is used to treat or prevent certain kinds of bacterial infections. It will not work for colds, flu, or other viral infections. How should I use this medicine? Take this medicine by mouth with a full glass of water. Follow the directions on the prescription label. The tablets can be taken with food or on an empty stomach. If the medicine upsets your stomach, take it with food. Take your medicine at regular intervals. Do not take your medicine more often than directed. Take all of your medicine as directed even if you think your are better. Do not skip doses or stop your medicine early. Talk to your resource development director regarding the use of this medicine in children. Special care may be needed. What side effects may I notice from receiving this medicine? Side effects that you should report to your doctor or health adult live in caregiver as soon as possible: allergic reactions like skin rash, itching or hives, swelling of the face, lips, or tongue confusion, nightmares or hallucinations dark urine difficulty breathing hearing loss irregular heartbeat or chest pain pain or difficulty passing urine redness, blistering, peeling or loosening of the skin, including inside the mouth white patches or sores in the mouth yellowing of the eyes or skin Side effects that usually do not require medical attention (report to your doctor or health adult live in caregiver if they continue or are bothersome): diarrhea dizziness, drowsiness headache stomach upset or vomiting tooth discoloration vaginal irritation What may interact with this medicine? Do not take this medicine with any of the following medications: lincomycin This medicine may also interact with the following medications: amiodarone antacids cyclosporine digoxin magnesium nelfinavir phenytoin warfarin What if I miss a dose? If you miss a dose, take it as soon as you can. If it is almost time for your next dose, take only that dose. Do not take double or extra doses. Where should I keep my medicine? Keep out of the reach of children. Store at room temperature between 15 and 30 degrees C (59 and 86 degrees F). Throw away any unused medicine after the expiration date. What should I tell my health care provider before I take this medicine? They need to know if you have any of these conditions: kidney disease liver disease irregular heartbeat or heart disease an unusual or allergic reaction to azithromycin, erythromycin, other macrolide antibiotics, foods, dyes, or preservatives or trying to get breast-feeding What should I watch for while using this medicine? Tell your doctor or health adult live in caregiver if your symptoms do not improve. Do not treat diarrhea with over the counter products. Contact your doctor if you have diarrhea that lasts more than 2 days or if it is severe and watery. This medicine can make you more sensitive to the sun. Keep out of the sun. If you cannot avoid being in the sun, wear protective clothing and use sunscreen. Do not use sun lamps or tanning beds/booths. Tramadol Hydrochloride Oral tablet What is this medicine? TRAMADOL (TRA ma dole) is a pain reliever. It is used to treat moderate to severe pain in adults. How should I use this medicine? Take this medicine by mouth with a full glass of water. Follow the directions on the prescription label. If the medicine upsets your stomach, take it with food or milk. Do not take more medicine than you are told to take. Talk to your resource development director regarding the use of this medicine in children. Special care may be needed. What side effects may I notice from receiving this medicine? Side effects that you should report to your doctor or health adult live in caregiver as soon as possible: allergic reactions like skin rash, itching or hives, swelling of the face, lips, or tongue breathing difficulties, wheezing confusion itching light headedness or fainting spells redness, blistering, peeling or loosening of the skin, including inside the mouth seizures Side effects that usually do not require medical attention (report to your doctor or health adult live in caregiver if they continue or are bothersome): constipation dizziness drowsiness headache nausea, vomiting What may interact with this medicine? Do not take this medicine with any of the following medications: MAOIs like Carbex, Eldepryl, Marplan, Nardil, and Parnate This medicine may also interact with the following medications: alcohol or medicines that contain alcohol antihistamines benzodiazepines bupropion carbamazepine or oxcarbazepine clozapine cyclobenzaprine digoxin furazolidone linezolid medicines for depression, anxiety, or psychotic disturbances medicines for migraine headache like almotriptan, eletriptan, frovatriptan, naratriptan, rizatriptan, sumatriptan, zolmitriptan medicines for pain like pentazocine, buprenorphine, butorphanol, meperidine, nalbuphine, and propoxyphene medicines for sleep muscle relaxants naltrexone phenobarbital phenothiazines like perphenazine, thioridazine, chlorpromazine, mesoridazine, fluphenazine, prochlorperazine, promazine, and trifluoperazine procarbazine warfarin What if I miss a dose? If you miss a dose, take it as soon as you can. If it is almost time for your next dose, take only that dose. Do not take double or extra doses. Where should I keep my medicine? Keep out of the reach of children. Store at room temperature between 15 and 30 degrees C (59 and 86 degrees F). Keep container tightly closed. Throw away any unused medicine after the expiration date. What should I tell my health care provider before I take this medicine? They need to know if you have any of these conditions: brain tumor depression drug abuse or addiction head injury if you frequently drink alcohol containing drinks kidney disease or trouble passing urine liver disease lung disease, asthma, or breathing problems seizures or epilepsy suicidal thoughts, plans, or attempt; a previous suicide attempt by you or a family member an unusual or allergic reaction to tramadol, codeine, other medicines, foods, dyes, or preservatives or trying to get breast-feeding What should I watch for while using this medicine? Tell your doctor or health adult live in caregiver if your pain does not go away, if it gets worse, or if you have new or a different type of pain. You may develop tolerance to the medicine. Tolerance means that you will need a higher dose of the medicine for pain relief. Tolerance is normal and is expected if you take this medicine for a long time. Do not suddenly stop taking your medicine because you may develop a severe reaction. Your body becomes used to the medicine. This does NOT mean you are addicted. Addiction is a behavior related to getting and using a drug for a non-medical reason. If you have pain, you have a medical reason to take pain medicine. Your doctor will tell you how much medicine to take. If your doctor wants you to stop the medicine, the dose will be slowly lowered over time to avoid any side effects. You may get drowsy or dizzy. Do not drive, use machinery, or do anything that needs mental alertness until you know how this medicine affects you. Do not stand or sit up quickly, especially if you are an older patient. This reduces the risk of dizzy or fainting spells. Alcohol can increase or decrease the effects of this medicine. Avoid alcoholic drinks. You may have constipation. Try to have a bowel movement at least every 2 to 3 days. If you do not have a bowel movement for 3 days, call your doctor or health adult live in caregiver. Your mouth may get dry. Chewing sugarless gum or sucking hard candy, and drinking plenty of water may help. Contact your doctor if the problem does not go away or is severe. You have been given the following additional information: Uri, Viral, No Abx (Adult) Fever Control (Adult) Prednisone Oral tablet Benzonatate Oral capsule, liquid filled Azithromycin Oral tablet Tramadol Hydrochloride Oral tablet Do not work today, for two days. (Electronically signed by Madhuri Mcconnell A.R.N.P. 09/18/2016 18:48)
--- NOTE | 2016-09-18 18:49 | ED MED RECONCILIATION SUMMARY ---
Patient: CHAUNCEY BATES Medication Reconciliation Report [facility] VisitID: [id number] [place] [address] 41y, F Registration Date/Time: 09/18/2016 Weight: 113 kg Height/Length: 66 in. BMI: 40.2 ALLERGIES: Sulfa Antibiotics The patient's Home Medications are listed below: THE FOLLOWING MEDICATIONS NEED TO BE RECONCILED: ALPRAZolam Oral Evotas Lisinopril Oral 10 mg, daily OLANZapine Oral Prazin 20mg for nightmares Truvada Oral The source(s) of the original Home Medication information: Not obtained. The following Medications were given to the patient in the Emergency Department: Albuterol [Neb Tx] Neb TX 2 unit dose, administered: 09/18/2016 3:18:00 PM ALBUTEROL NEB W ATROVENT Neb TX 1 unit dose, administered: 09/18/2016 3:19:00 PM SOLU-MEDROL [IVP] IVP 125 mg, administered: 09/18/2016 3:15:00 PM Toradol [IVP] IVP 30 mg, administered: 09/18/2016 4:48:00 PM The following Medications were prescribed to the patient: Prednisone 20 mg: take 3 orally every day for 5 days. Dispense fifteen (15). No refills. -- Madhuri Mcconnell, A.R.N.P. Tessalon Perles 100 mg: Take 1 orally every 8 hours as needed for cough. Dispense twenty (20). No refills. Substitution is permissible. -- Madhuri Mcconnell A.R.N.P. Zithromax 250 mg tablets: take 2 orally today, followed by 1 daily for the next 4 days. No refills. Substitution is permissible. -- Madhuri Mcconnell A.Blake.N.P. Ultram 50 mg tablets: take 1-2 orally every 6 hours as needed for pain. Dispense twenty (20). No refills. Substitution is permissible. -- Madhuri Mcconnell A.R.N.P.
--- NOTE | 2016-09-18 18:49 | ED DISCHARGE INSTRUCTIONS ---
Patient: CHAUNCEY BATES General Instructions [facility] VisitID: [id number] [place] [address] 41y, F Registration Date/Time: 09/18/2016 Acute rhinitis. INSTRUCTIONS Alternate Tylenol (Acetaminophen) and Motrin (Ibuprofen) for fever, temperature greater than 101 degrees orally. Take according to label instructions. Do not work today, for two days. Drink plenty of fluids. Avoid tobacco smoke. Warnings: GENERAL WARNINGS: Return or contact your physician immediately if your condition worsens or changes unexpectedly, if not improving as expected, or if other problems arise. Specifically return if problem worsens. Prescription Medications: Prednisone 20 mg: take 3 orally every day for 5 days. Dispense fifteen (15). No refills. Tessalon Perles 100 mg: Take 1 orally every 8 hours as needed for cough. Dispense twenty (20). No refills. Substitution is permissible. Zithromax 250 mg tablets: take 2 orally today, followed by 1 daily for the next 4 days. No refills. Substitution is permissible. Ultram 50 mg tablets: take 1-2 orally every 6 hours as needed for pain. Dispense twenty (20). No refills. Substitution is permissible. Follow-up: Follow up with your doctor in about three days even if well. Call for an appointment. Summary of care provided to patient. Understanding of the discharge instructions verbalized by patient. ADDITIONAL INFORMATION Viral Respiratory Illness [Adult] You have an Upper Respiratory Illness (URI) caused by a virus. This illness is contagious during the first few days. It is spread through the air by coughing and sneezing or by direct contact (touching the sick person and then touching your own eyes, nose or mouth). Most viral illnesses go away within 7-10 days with rest and simple home remedies. Sometimes, the illness may last for several weeks. Antibiotics will not kill a virus and are generally not prescribed for this condition. Home Care: 1) If symptoms are severe, rest at home for the first 2-3 days. When you resume activity, don't let yourself get too tired. 2) Avoid being exposed to cigarette smoke (yours or others). 3) Tylenol (acetaminophen) or ibuprofen (Advil, Motrin) will help fever, muscle aching and headache. (Persons under 18 with fever should not take aspirin since this may cause liver damage.) 4) Your appetite may be poor, so a light diet is fine. Avoid dehydration by drinking 6-8 glasses of fluids per day (water, soft drinks, juices, tea, soup). Extra fluids will help loosen secretions in the nose and lungs. 5) Noxr-bmj-[id number] cold medicines will not shorten the length of time youre sick, but they may be helpful for the following symptoms: cough (Robitussin DM); sore throat (Chloraseptic lozenges or spray); nasal and sinus congestion (Actifed, Sudafed, Chlortrimeton). Follow Up with your doctor or as advised if you dont improve over the next week. Get Prompt Medical Attention if any of the following occur: -- Cough with lots of colored sputum (mucus) or blood in your sputum -- Chest pain, shortness of breath, wheezing or have trouble breathing -- Severe headache; face, neck or ear pain -- Fever over 100.4 F (38.0 C) for more than three days -- You cant swallow due to throat pain Fever Control (Adult) A fever is a natural reaction of the body to an illness. In most cases, the temperature itself is not harmful. It actually helps the body fight infections. A fever does not need to be treated unless you feel very uncomfortable. Home Care If you feel warm, check your temperature. If you feel very uncomfortable and your temperature is at or higher than 100.4F (38C) oral, you may take acetaminophen (Tylenol) every 4 to 6 hours. If you cant take or keep down oral medicine, ask your pharmacist for Tylenol suppositories, which you can get without a prescription. If the fever does not respond to acetaminophen within 1 hour, take ibuprofen (Advil or Motrin). If this works, keep taking the ibuprofen every 6 to 8 hours. Note: If you have chronic liver or kidney disease or ever had a stomach ulcer or GI bleeding, talk with your doctor before using these medications. If either medication alone does not keep the fever down, you may alternate the two medicines every 3 to 4 hours, only if your healthcare provider has instructed you to do so. For example, take Motrin then wait 3 hours, take Tylenol then wait 3 hours, take Motrin, and so on. Follow your healthcare providers instructions exactly. Clothing: Keep clothing light because excess body heat is lost through the skin. The fever will go up if you wear extra layers or wrap in blankets. Fluids: Fever causes the body to lose water through evaporation. Drink plenty of fluids such as water, juice, clear sodas, luke anita, or lemonade. Do not use aspirin in anyone under 18 years of age who is ill with a fever. It can cause severe liver damage. Follow Up with your doctor or as advised by our staff if you do not get better after 48 hours. Get Prompt Medical Attention if any of the following occur: Fever does not get better after taking fever medication Fast or difficult breathing Earache, sinus pain, stiff or painful neck, headache, repeated diarrhea or vomiting You feel unusually irritable, drowsy, or confused A rash appears You feel weak or dizzy, or that you might faint Prednisone Oral tablet What is this medicine? PREDNISONE (PRED ni sone) is a corticosteroid. It is commonly used to treat inflammation of the skin, joints, lungs, and other organs. Common conditions treated include asthma, allergies, and arthritis. It is also used for other conditions, such as blood disorders and diseases of the adrenal glands. How should I use this medicine? Take this medicine by mouth with a glass of water. Follow the directions on the prescription label. Take this medicine with food. If you are taking this medicine once a day, take it in the morning. Do not take more medicine than you are told to take. Do not suddenly stop taking your medicine because you may develop a severe reaction. Your doctor will tell you how much medicine to take. If your doctor wants you to stop the medicine, the dose may be slowly lowered over time to avoid any side effects. Talk to your lining layer regarding the use of this medicine in children. Special care may be needed. What side effects may I notice from receiving this medicine? Side effects that you should report to your doctor or health aged or disabled carer as soon as possible: allergic reactions like skin rash, itching or hives, swelling of the face, lips, or tongue changes in emotions or moods changes in vision depressed mood eye pain fever or chills, cough, sore throat, pain or difficulty passing urine increased thirst swelling of ankles, feet Side effects that usually do not require medical attention (report to your doctor or health aged or disabled carer if they continue or are bothersome): confusion, excitement, restlessness headache nausea, vomiting skin problems, acne, thin and shiny skin trouble sleeping weight gain What may interact with this medicine? Do not take this medicine with any of the following medications: metyrapone mifepristone This medicine may also interact with the following medications: aminoglutethimide amphotericin B aspirin and aspirin-like medicines barbiturates certain medicines for diabetes, like glipizide or glyburide cholestyramine cholinesterase inhibitors cyclosporine digoxin diuretics ephedrine female hormones, like estrogens and control pills isoniazid ketoconazole NSAIDS, medicines for pain and inflammation, like ibuprofen or naproxen phenytoin rifampin toxoids vaccines warfarin What if I miss a dose? If you miss a dose, take it as soon as you can. If it is almost time for your next dose, talk to your doctor or health aged or disabled carer. You may need to miss a dose or take an extra dose. Do not take double or extra doses without advice. Where should I keep my medicine? Keep out of the reach of children. Store at room temperature between 15 and 30 degrees C (59 and 86 degrees F). Protect from light. Keep container tightly closed. Throw away any unused medicine after the expiration date. What should I tell my health care provider before I take this medicine? They need to know if you have any of these conditions: Lisa's syndrome diabetes glaucoma heart disease high blood pressure infection (especially a virus infection such as chickenpox, cold sores, or herpes) kidney disease liver disease mental illness myasthenia gravis osteoporosis seizures stomach or intestine problems thyroid disease an unusual or allergic reaction to lactose, prednisone, other medicines, foods, dyes, or preservatives or trying to get breast-feeding What should I watch for while using this medicine? Visit your doctor or health aged or disabled carer for regular checks on your progress. If you are taking this medicine over a prolonged period, carry an identification card with your name and address, the type and dose of your medicine, and your doctor's name and address. This medicine may increase your risk of getting an infection. Tell your doctor or health aged or disabled carer if you are around anyone with measles or chickenpox, or if you develop sores or blisters that do not heal properly. If you are going to have surgery, tell your doctor or health aged or disabled carer that you have taken this medicine within the last twelve months. Ask your doctor or health aged or disabled carer about your diet. You may need to lower the amount of salt you eat. This medicine may affect blood sugar levels. If you have diabetes, check with your doctor or health aged or disabled carer before you change your diet or the dose of your diabetic medicine. Benzonatate Oral capsule, liquid filled What is this medicine? BENZONATATE (ashlee SARA na guzman) is used to treat cough. How should I use this medicine? Take this medicine by mouth with a glass of water. Follow the directions on the prescription label. Avoid breaking, chewing, or sucking the capsule, as this can cause serious side effects. Take your medicine at regular intervals. Do not take your medicine more often than directed. Talk to your lining layer regarding the use of this medicine in children. While this drug may be prescribed for children as young as 10 years old for selected conditions, precautions do apply. What side effects may I notice from receiving this medicine? Side effects that you should report to your doctor or health aged or disabled carer as soon as possible: allergic reactions like skin rash, itching or hives, swelling of the face, lips, or tongue breathing problems chest pain confusion or hallucinations irregular heartbeat numbness of mouth or throat seizures Side effects that usually do not require medical attention (report to your doctor or health aged or disabled carer if they continue or are bothersome): burning feeling in the eyes constipation headache nasal congestion stomach upset What may interact with this medicine? Do not take this medicine with any of the following medications: MAOIs like Carbex, Eldepryl, Marplan, Nardil, and Parnate What if I miss a dose? If you miss a dose, take it as soon as you can. If it is almost time for your next dose, take only that dose. Do not take double or extra doses. Where should I keep my medicine? Keep out of the reach of children. Store at room temperature between 15 and 30 degrees C (59 and 86 degrees F). Keep tightly closed. Protect from light and moisture. Throw away any unused medicine after the expiration date. What should I tell my health care provider before I take this medicine? They need to know if you have any of these conditions: kidney or liver disease an unusual or allergic reaction to benzonatate, anesthetics, other medicines, foods, dyes, or preservatives or trying to get breast-feeding What should I watch for while using this medicine? Tell your doctor if your symptoms do not improve or if they get worse. If you have a high fever, skin rash, or headache, see your health aged or disabled carer. You may get drowsy or dizzy. Do not drive, use machinery, or do anything that needs mental alertness until you know how this medicine affects you. Do not sit or stand up quickly, especially if you are an older patient. This reduces the risk of dizzy or fainting spells. Azithromycin Oral tablet What is this medicine? AZITHROMYCIN (az ith isaac LIVINGSTON sin) is a macrolide antibiotic. It is used to treat or prevent certain kinds of bacterial infections. It will not work for colds, flu, or other viral infections. How should I use this medicine? Take this medicine by mouth with a full glass of water. Follow the directions on the prescription label. The tablets can be taken with food or on an empty stomach. If the medicine upsets your stomach, take it with food. Take your medicine at regular intervals. Do not take your medicine more often than directed. Take all of your medicine as directed even if you think your are better. Do not skip doses or stop your medicine early. Talk to your lining layer regarding the use of this medicine in children. Special care may be needed. What side effects may I notice from receiving this medicine? Side effects that you should report to your doctor or health aged or disabled carer as soon as possible: allergic reactions like skin rash, itching or hives, swelling of the face, lips, or tongue confusion, nightmares or hallucinations dark urine difficulty breathing hearing loss irregular heartbeat or chest pain pain or difficulty passing urine redness, blistering, peeling or loosening of the skin, including inside the mouth white patches or sores in the mouth yellowing of the eyes or skin Side effects that usually do not require medical attention (report to your doctor or health aged or disabled carer if they continue or are bothersome): diarrhea dizziness, drowsiness headache stomach upset or vomiting tooth discoloration vaginal irritation What may interact with this medicine? Do not take this medicine with any of the following medications: lincomycin This medicine may also interact with the following medications: amiodarone antacids cyclosporine digoxin magnesium nelfinavir phenytoin warfarin What if I miss a dose? If you miss a dose, take it as soon as you can. If it is almost time for your next dose, take only that dose. Do not take double or extra doses. Where should I keep my medicine? Keep out of the reach of children. Store at room temperature between 15 and 30 degrees C (59 and 86 degrees F). Throw away any unused medicine after the expiration date. What should I tell my health care provider before I take this medicine? They need to know if you have any of these conditions: kidney disease liver disease irregular heartbeat or heart disease an unusual or allergic reaction to azithromycin, erythromycin, other macrolide antibiotics, foods, dyes, or preservatives or trying to get breast-feeding What should I watch for while using this medicine? Tell your doctor or health aged or disabled carer if your symptoms do not improve. Do not treat diarrhea with over the counter products. Contact your doctor if you have diarrhea that lasts more than 2 days or if it is severe and watery. This medicine can make you more sensitive to the sun. Keep out of the sun. If you cannot avoid being in the sun, wear protective clothing and use sunscreen. Do not use sun lamps or tanning beds/booths. Tramadol Hydrochloride Oral tablet What is this medicine? TRAMADOL (TRA ma dole) is a pain reliever. It is used to treat moderate to severe pain in adults. How should I use this medicine? Take this medicine by mouth with a full glass of water. Follow the directions on the prescription label. If the medicine upsets your stomach, take it with food or milk. Do not take more medicine than you are told to take. Talk to your lining layer regarding the use of this medicine in children. Special care may be needed. What side effects may I notice from receiving this medicine? Side effects that you should report to your doctor or health aged or disabled carer as soon as possible: allergic reactions like skin rash, itching or hives, swelling of the face, lips, or tongue breathing difficulties, wheezing confusion itching light headedness or fainting spells redness, blistering, peeling or loosening of the skin, including inside the mouth seizures Side effects that usually do not require medical attention (report to your doctor or health aged or disabled carer if they continue or are bothersome): constipation dizziness drowsiness headache nausea, vomiting What may interact with this medicine? Do not take this medicine with any of the following medications: MAOIs like Carbex, Eldepryl, Marplan, Nardil, and Parnate This medicine may also interact with the following medications: alcohol or medicines that contain alcohol antihistamines benzodiazepines bupropion carbamazepine or oxcarbazepine clozapine cyclobenzaprine digoxin furazolidone linezolid medicines for depression, anxiety, or psychotic disturbances medicines for migraine headache like almotriptan, eletriptan, frovatriptan, naratriptan, rizatriptan, sumatriptan, zolmitriptan medicines for pain like pentazocine, buprenorphine, butorphanol, meperidine, nalbuphine, and propoxyphene medicines for sleep muscle relaxants naltrexone phenobarbital phenothiazines like perphenazine, thioridazine, chlorpromazine, mesoridazine, fluphenazine, prochlorperazine, promazine, and trifluoperazine procarbazine warfarin What if I miss a dose? If you miss a dose, take it as soon as you can. If it is almost time for your next dose, take only that dose. Do not take double or extra doses. Where should I keep my medicine? Keep out of the reach of children. Store at room temperature between 15 and 30 degrees C (59 and 86 degrees F). Keep container tightly closed. Throw away any unused medicine after the expiration date. What should I tell my health care provider before I take this medicine? They need to know if you have any of these conditions: brain tumor depression drug abuse or addiction head injury if you frequently drink alcohol containing drinks kidney disease or trouble passing urine liver disease lung disease, asthma, or breathing problems seizures or epilepsy suicidal thoughts, plans, or attempt; a previous suicide attempt by you or a family member an unusual or allergic reaction to tramadol, codeine, other medicines, foods, dyes, or preservatives or trying to get breast-feeding What should I watch for while using this medicine? Tell your doctor or health aged or disabled carer if your pain does not go away, if it gets worse, or if you have new or a different type of pain. You may develop tolerance to the medicine. Tolerance means that you will need a higher dose of the medicine for pain relief. Tolerance is normal and is expected if you take this medicine for a long time. Do not suddenly stop taking your medicine because you may develop a severe reaction. Your body becomes used to the medicine. This does NOT mean you are addicted. Addiction is a behavior related to getting and using a drug for a non-medical reason. If you have pain, you have a medical reason to take pain medicine. Your doctor will tell you how much medicine to take. If your doctor wants you to stop the medicine, the dose will be slowly lowered over time to avoid any side effects. You may get drowsy or dizzy. Do not drive, use machinery, or do anything that needs mental alertness until you know how this medicine affects you. Do not stand or sit up quickly, especially if you are an older patient. This reduces the risk of dizzy or fainting spells. Alcohol can increase or decrease the effects of this medicine. Avoid alcoholic drinks. You may have constipation. Try to have a bowel movement at least every 2 to 3 days. If you do not have a bowel movement for 3 days, call your doctor or health aged or disabled carer. Your mouth may get dry. Chewing sugarless gum or sucking hard candy, and drinking plenty of water may help. Contact your doctor if the problem does not go away or is severe. You have been given the following additional information: Uri, Viral, No Abx (Adult) Fever Control (Adult) Prednisone Oral tablet Benzonatate Oral capsule, liquid filled Azithromycin Oral tablet Tramadol Hydrochloride Oral tablet Do not work today, for two days. (Electronically signed by Madhuri Mcconnell A.R.N.P. 09/18/2016 18:48)
--- NOTE | 2016-09-18 18:49 | ED MAR SUMMARY ---
..... Medication Administration Record [facility] [address] [place] [address] Patient: CHAUNCEY BATES Visit ID: [id number] 41y, F Weight: 113.0 kg Height/Length: 66 in BMI: 40.2 ALLERGIES: Sulfa Antibiotics Given 15:15 09/18/2016 Dipika Ferrer R.N. Medication Administered: SOLU-MEDROL [IVP] (METHYLPREDNISOLONE SODIUM SUCC), Dose: 125 mg IVP over 1 minute(s), Site: #1. Medication Ordered: Solu-MEDROL IV 125 mg (NOW). Given 15:18 09/18/2016 Joyce Em, Medication Administered: ALBUTEROL [NEB TX], Dose: 2 unit dose Nebulizer Neb TX. Medication Ordered: Albuterol Neb Tx 2 unit doses (NOW). Given 15:19 09/18/2016 Joyce Em, Medication Administered: ALBUTEROL NEB W ATROVENT, Dose: 1 unit dose Nebulizer Neb TX. Medication Ordered: Albuterol Neb w Atrovent 1 unit dose (NOW). Given 16:48 09/18/2016 Dipika Ferrer R.N. Medication Administered: TORADOL [IVP], Dose: 30 mg IVP over 1 minute(s), Site: #1 right hand. Medication Ordered: Toradol IV 30 mg (NOW).
--- NOTE | 2016-09-18 18:49 | ED MED RECONCILIATION SUMMARY ---
Patient: CHAUNCEY BATES Medication Reconciliation Report [facility] VisitID: [id number] [address] [place] [address] 41y, F Registration Date/Time: 09/18/2016 Weight: 113 kg Height/Length: 66 in. BMI: 40.2 ALLERGIES: Sulfa Antibiotics The patient's Home Medications are listed below: THE FOLLOWING MEDICATIONS NEED TO BE RECONCILED: ALPRAZolam Oral Evotas Lisinopril Oral 10 mg, daily OLANZapine Oral Prazin 20mg for nightmares Truvada Oral The source(s) of the original Home Medication information: Not obtained. The following Medications were given to the patient in the Emergency Department: Albuterol [Neb Tx] Neb TX 2 unit dose, administered: 09/18/2016 3:18:00 PM ALBUTEROL NEB W ATROVENT Neb TX 1 unit dose, administered: 09/18/2016 3:19:00 PM SOLU-MEDROL [IVP] IVP 125 mg, administered: 09/18/2016 3:15:00 PM Toradol [IVP] IVP 30 mg, administered: 09/18/2016 4:48:00 PM The following Medications were prescribed to the patient: Prednisone 20 mg: take 3 orally every day for 5 days. Dispense fifteen (15). No refills. -- Madhuri Mcconnell, A.R.N.P. Tessalon Perles 100 mg: Take 1 orally every 8 hours as needed for cough. Dispense twenty (20). No refills. Substitution is permissible. -- Madhuri Mcconnell A.R.N.P. Zithromax 250 mg tablets: take 2 orally today, followed by 1 daily for the next 4 days. No refills. Substitution is permissible. -- Madhuri Mcconnell A.Blake.N.P. Ultram 50 mg tablets: take 1-2 orally every 6 hours as needed for pain. Dispense twenty (20). No refills. Substitution is permissible. -- Madhuri Mcconnell A.R.N.P.
--- NOTE | 2016-09-18 18:49 | ED MAR SUMMARY ---
..... Medication Administration Record [facility] [address] [place] [address] Patient: CHAUNCEY BATES Visit ID: [id number] 41y, F Weight: 113.0 kg Height/Length: 66 in BMI: 40.2 ALLERGIES: Sulfa Antibiotics Given 15:15 09/18/2016 Dipika Ferrer R.N. Medication Administered: SOLU-MEDROL [IVP] (METHYLPREDNISOLONE SODIUM SUCC), Dose: 125 mg IVP over 1 minute(s), Site: #1. Medication Ordered: Solu-MEDROL IV 125 mg (NOW). Given 15:18 09/18/2016 Joyce Em, Medication Administered: ALBUTEROL [NEB TX], Dose: 2 unit dose Nebulizer Neb TX. Medication Ordered: Albuterol Neb Tx 2 unit doses (NOW). Given 15:19 09/18/2016 Joyce Em, Medication Administered: ALBUTEROL NEB W ATROVENT, Dose: 1 unit dose Nebulizer Neb TX. Medication Ordered: Albuterol Neb w Atrovent 1 unit dose (NOW). Given 16:48 09/18/2016 Dipika Ferrer R.N. Medication Administered: TORADOL [IVP], Dose: 30 mg IVP over 1 minute(s), Site: #1 right hand. Medication Ordered: Toradol IV 30 mg (NOW).
== END 2016-09-18 16:58 | disposition home or self-care (01) ==
LOC: ED SRH 14:46
DX: J00 Acute nasopharyngitis [common cold] (principal); I10 Essential (primary) hypertension; B20 Human immunodeficiency virus [HIV] disease; F17.210 Nicotine dependence, cigarettes, uncomplicated; Z88.2 Allergy status to sulfonamides
CPT/HCPCS: 90047; 95059

== ENCOUNTER 2016-10-11 17:52 | Emergency (ER) | payer OTHER ==
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
--- NOTE | 2016-10-11 20:02 | ED ORDER SUMMARY ---
..... Patient: CHAUNCEY BATES OrderSheet [facility] VisitID: [id number] [place] [address] 41y, F Registration Date/Time: 10/11/2016 ORDER SHEET Weight: 113.3 kg (stated) Allergies: Sulfa Antibiotics GENERAL ORDERS: Ice (18:05 10/11/2016 Shankar Tejeda) (18:12 Hakanziarka R.N.) Lumbar Spine 2 or 3V Urgent (18:27 10/11/2016 Shankar Tejeda) (Ack 18:29 TBergley) (19:12 RFay) MEDICATION ORDERS: Toradol IM 60 mg (NOW) (19:58 10/11/2016 Shankar Tejeda) (20:18 JDeElena R.N.) IV FLUIDS: ORDER SHEET NOTES: [Electronically signed by Anselmo Villalobos R.N. (20:22 10/11/2016)] [Electronically signed by Hernando Beard Dr. (09:31 10/14/2016)] [Electronically locked/signed by Anselmo Villalobos R.N. (20:22 10/11/2016)]
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
--- NOTE | 2016-10-11 20:02 | ED ORDER SUMMARY ---
..... Patient: CHAUNCEY BATES OrderSheet [facility] VisitID: [id number] [place] [address] 41y, F Registration Date/Time: 10/11/2016 ORDER SHEET Weight: 113.3 kg (stated) Allergies: Sulfa Antibiotics GENERAL ORDERS: Ice (18:05 10/11/2016 Shankar Tejeda) (18:12 Hakanziarka R.N.) Lumbar Spine 2 or 3V Urgent (18:27 10/11/2016 Shankar Tejeda) (Ack 18:29 TBergley) (19:12 RFay) MEDICATION ORDERS: Toradol IM 60 mg (NOW) (19:58 10/11/2016 Shankar Tejeda) (20:18 JDeElena R.N.) IV FLUIDS: ORDER SHEET NOTES: [Electronically signed by Anselmo Villalobos R.N. (20:22 10/11/2016)] [Electronically signed by Hernando Beard Dr. (09:31 10/14/2016)] [Electronically locked/signed by Anselmo Villalobos R.N. (20:22 10/11/2016)]
--- NOTE | 2016-10-14 09:31 | ED MED RECONCILIATION SUMMARY ---
Patient: CHAUNCEY BTAES Medication Reconciliation Report [facility] VisitID: [id number] [address] [place] [address] 41y, F Registration Date/Time: 10/11/2016 Weight: 113.3 kg Height/Length: 66 in. BMI: 40.3 ALLERGIES: Sulfa Antibiotics The patient's Home Medications are listed below: CONTINUE TAKING THE FOLLOWING MEDICATIONS: ALPRAZolam Oral Evotas Lisinopril Oral 10 mg, daily OLANZapine Oral Prazin 20mg for nightmares Truvada Oral The source(s) of the original Home Medication information: Not obtained. The following Medications were given to the patient in the Emergency Department: Toradol [IM] IM 60 mg, administered: 10/11/2016 8:18:00 PM The following Medications were prescribed to the patient: Diclofenac 75 mg tablets: take 1 tablet orally every 12 hours as needed for pain or stiffness. Dispense twenty (20). No refill.(take with food) -- Hernando Beard Dr.
--- NOTE | 2016-10-14 09:31 | ED MED RECONCILIATION SUMMARY ---
Patient: CHAUNCEY BATES Medication Reconciliation Report [facility] VisitID: [id number] [address] [place] [address] 41y, F Registration Date/Time: 10/11/2016 Weight: 113.3 kg Height/Length: 66 in. BMI: 40.3 ALLERGIES: Sulfa Antibiotics The patient's Home Medications are listed below: CONTINUE TAKING THE FOLLOWING MEDICATIONS: ALPRAZolam Oral Evotas Lisinopril Oral 10 mg, daily OLANZapine Oral Prazin 20mg for nightmares Truvada Oral The source(s) of the original Home Medication information: Not obtained. The following Medications were given to the patient in the Emergency Department: Toradol [IM] IM 60 mg, administered: 10/11/2016 8:18:00 PM The following Medications were prescribed to the patient: Diclofenac 75 mg tablets: take 1 tablet orally every 12 hours as needed for pain or stiffness. Dispense twenty (20). No refill.(take with food) -- Hernando Beard Dr.
--- NOTE | 2016-10-14 09:31 | ED MAR SUMMARY ---
..... Medication Administration Record [facility] [address] [place] [address] Patient: CHAUNCEY BATES Visit ID: [id number] 41y, F Weight: 113.3 kg Height/Length: 66 in BMI: 40.3 ALLERGIES: Sulfa Antibiotics Given 20:18 10/11/2016 Antonio Guerra RMartha Medication Administered: TORADOL [IM] (KETOROLAC TROMETHAMINE), Dose: 60 mg IM. Medication Ordered: Toradol IM 60 mg (NOW).
--- NOTE | 2016-10-14 09:31 | ED MAR SUMMARY ---
..... Medication Administration Record [facility] [address] [place] [address] Patient: CHAUNCEY BATES Visit ID: [id number] 41y, F Weight: 113.3 kg Height/Length: 66 in BMI: 40.3 ALLERGIES: Sulfa Antibiotics Given 20:18 10/11/2016 Antonio Guerra RMartha Medication Administered: TORADOL [IM] (KETOROLAC TROMETHAMINE), Dose: 60 mg IM. Medication Ordered: Toradol IM 60 mg (NOW).
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
== END 2016-10-11 20:15 | disposition home or self-care (01) ==
LOC: ED SRH 17:52
DX: S33.5XXA Sprain of ligaments of lumbar spine, initial encounter (principal); V53.5XXA Driver of pick-up truck or van injured in collision with car, pick-up truck or van in traffic accident, initial encounter; Y93.89 Activity, other specified; Y92.410 Unspecified street and highway as the place of occurrence of the external cause; Y99.8 Other external cause status; Z79.899 Other long term (current) drug therapy; Z88.2 Allergy status to sulfonamides